=== PATIENT | male | born 1955 | race Caucasian/White ===

== ENCOUNTER → 2025-07-12 08:36 | Outpatient (REF) | payer MEDICARE, OTHER, SELFPAY ==
[2025-07-12 09:31] LABS: Hematocrit 46.1 % (39.0-52.0); Hemoglobin 15.5 g/dL (13.0-18.0); Mean Corp Hgb Conc. 33.6 g/dL (33.0-37.0); Mean Corpuscular Volume 89.5 fL (80.0-94.0); Nucleated Red Blood Cells % 0 % (-); Platelet Count 208 10^3/uL (130-400); Red Cell Dist. Width 13.2 % (11.5-14.5)
[2025-07-12 09:39] LABS: INR 1.13; PT 14.3 Sec (11.4-14.6)
[2025-07-12 09:44] LABS: ALT (SGPT) 25 U/L (0-50); AST (SGOT) 28 U/L (17-59); Albumin 4.7 g/dl (3.5-5.0); Alkaline Phosphatase 67 U/L (38-126); Blood Urea Nitrogen 26 mg/dl (9-20); Calcium 9.5 mg/dl (8.4-10.2); Carbon Dioxide 27 mmol/L (22-30); Chloride 106 mmol/L (98-107); Glucose 91 mg/dl (70-99); Magnesium 2.3 mg/dl (1.6-2.3); Potassium 4.9 mmol/L (3.5-5.1); Sodium 139 mmol/L (135-145); Total Protein 7.7 g/dl (6.3-8.2); eGFR > 60.00
== END ==
LOC: SDSPAT 08:36
PROVIDERS: ATTENDING PHYSICIAN Internal Medicine Cardiovascular Disease; FAMILY PHYSICIAN Student in an Organized Health Care Education/Training Program
DX: I48.0 Paroxysmal atrial fibrillation (principal)
CPT/HCPCS: 36415; 75572; 80053; 83735; 85025; 85610; 86850; 86900; 86901; 93005; Q9967

== ENCOUNTER 2025-07-23 07:30 | Day surgery (SDC) | payer MEDICARE, OTHER, SELFPAY ==
[2025-07-12 09:07] VITALS: BMI 26.8
--- NOTE | 2025-07-12 09:19 | HPS.HSE ---
Family Physician
-
Family Physician: NO INTERVIEW UNKNOWN
Chief Complaint
-
Paroxysmal atrial fibrillation.
History of Present Illness
The patient is a 69 year old male presenting today for paroxysmal atrial fibrillation. The patient was initially diagnosed with atrial fibrillation in December 2024. He reports palpitations, generalized fatigue, and exertional intolerance
secondary to this diagnosis. He notes that the frequency and duration of his symptoms have worsened since April. He is currently rate controlled without the use of pharmacological therapy. He does report compliance with Eliquis for oral
anticoagulation due to a [id number] of 1. Given his significant symptoms, he is interested in pursuing pulmonary vein isolation for more definitive arrhythmia management. He denies any complaints today such as chest pain, shortness of breath,
nausea, vomiting, diarrhea, lightheadedness, cough, sore throat, or fever.
Medical History
Past Medical History
Past Medical History: Reports Other
Additional Past Medical History:
1. Paroxysmal atrial fibrillation, oral anticoagulation with Eliquis.
2. White coat hypertension.
3. Dyslipidemia.
4. Right bundle branch block.
5. Mild mitral regurgitation.
6. Colon polyps.
7. Recurrent melanoma, status post excision.
8. Remote history of tobacco abuse.
Past Surgical History: Reports Other
Additional Past Surgical History:
1. Right hammertoe correction.
2. Left elbow fracture repair.
3. Tonsillectomy.
4. Mozelle teeth extraction.
5. Colonoscopy x3.
Social History
Tobacco: Former Smoker (He is a former less than 1 pack per day cigarette smoker who quit tobacco altogether 10+ years ago. )
Alcohol: None
Personal:
Living: Other (He lives with his spouse in a 2 story home. )
Family History
Family History: Other (He reports that his brother has a history of atrial fibrillation. )
Allergies / Home Medications
Allergy/Medication List:
Home medications:
1. Eliquis 5 mg p.o. twice a day.
2. Co Q10 200 mg p.o. daily.
3. Rosuvastatin 10 mg p.o. daily.
Allergies: No known allergies.
Review of Systems
-
A 12 point ROS was completed and negative except as noted: Yes
Physical Exam
Vital Signs
Blood pressure 157/88. Heart rate 59. Respirations 18. Pulse ox 99% on room air.
Height 5 feet, 10 inches. Weight 84.8 kg. BMI 26.8.
Physical Exam
General: Well Developed, Well Nourished and No Apparent Distress
HEENT: NormoCephalic, Moist mucous membranes, Atraumatic and PERRLA
Respiratory: Clear
Cardiac: Bradycardia
GI: Soft, Non Tender and Non Distended
Musculoskeletal: No Edema and Normal Gait & Station
Skin: Warm and Dry
Neuro: AO x 3 and Nonfocal/grossly intact
Laboratory Results
-
DIAGNOSTIC STUDIES as of 07/12/2025: White blood cell count 6.2. Hemoglobin 15.5. Platelet count 208,000. PT 14.3. INR 1.13. Sodium 139. Potassium 4.9. BUN 26. Creatinine 1.0. Glucose 91. Calcium 9.5. Magnesium 2.3. AST 28. ALT 25. Albumin 4.7. Type
and screen A negative.
EKG 07/12/2025: Sinus bradycardia. Right bundle branch block.
Chest CT 07/12/2025: Short segment common vestibule for the left superior and inferior pulmonary veins, fairly commonly seen and considered normal variant. No evidence for left atrial thrombus.
Echocardiogram 03/29/2025: Ejection fraction is 60%. Mild mitral regurgitation. Trace tricuspid regurgitation. Estimated PASP is 15-20 mmHg.
Nuclear stress test 02/26/2025: Low likelihood of significant coronary ischemia.
Impression/Plan
-
IMPRESSION/PLAN:
1. Paroxysmal atrial fibrillation: The patient is in need of pulmonary vein isolation with Dr. Hussain Vergara on 07/23/2025. The benefits and risks of the procedure have been explained to the patient. The patient understands these risks and
wishes to proceed. He will not be required to undergo a pre-procedural transesophageal echocardiogram as he has been compliant with his home oral anticoagulation. He is aware to continue his Eliquis uninterrupted prior to his procedure. He will take
no medications the morning of his ablation.
[2025-07-23] VITALS (13 sets, daily range): BP systolic 106–144; BP diastolic 61–82; BMI 26.6
--- NOTE | 2025-07-23 10:54 | ITS.CL.ABL ---
Network Support Administrator - Ablation
Ablation
Procedure Report:
ELECTROPHYSIOLOGIC STUDY AND POSSIBLE ABLATION
DATE: July 23, 2025
Primary Care Provider: Dr Bharat Hoff
INDICATION:
Symptomatic Atrial Fibrillation.
Paroxysmal
HAS-BLED: 1
Age
CHADSVASc: 1
Age
PRESENTING RHYTHM: SR
HISTORY: See H and P.
Symptomatic AF, poorly controlled with attempted medical therapy.
Symptoms in atrial fibrillation have included generalized fatigue which resolves quickly with rastafarian of sinus rhythm.
CHADSVASc = 1
Medical history also includes dyslipidemia and right bundle branch block
� - Report of echocardiogram dated 03/29/2025 from [facility] reports normal left ventricular size and function with ejection fraction of 65% and no segmental wall motion abnormalities.� Global longitudinal strain is normal at -19.7%.� There is
mild mitral regurgitation.
� - There is a PET/CT myocardial perfusion imaging report dated February 26, 2025 which concludes there is a low likelihood of significant coronary ischemia.
Blood work from 02/01/2025 finds hemoglobin hematocrit of 14.8 and 45, total cholesterol 142, triglycerides 67, HDL 58, LDL 70, BUN and creatinine 23 and 1, potassium 4.6, AST 22 and ALT 19
'TIME-OUT': called and confirmed.
SEDATION/ANESTHESIA: provided via the anesthesia department using general anesthesia.
PROCEDURE:
Ultrasound Guidance with real-time visualization of needle insertion and vessel patency performed by co for femoral venous Vascular Access.
Under real-time US guidance, the needle was advanced with negative pressure into the vein. The needle was seen entering the vessel lumen with a good return of dark red flow, the syringe was removed, non-pulsatile, dark red blood low was noted and
the wire was passed without difficulty, then the needle was removed. US confirmed the wire was in the vein, not going into an artery,
Images were taken and saved for the patient's permanent record. Imaging findings typical femoral venous anatomy. Direct visualization of needle puncture into the femoral vein was observed and recorded.
3 sheaths were inserted into the right femoral vein.
A decapolar CS catheter was positioned within the CS for mapping and pacing.
The intracardiac ultrasound catheter was positioned in the RA for continuous intracardiac ultrasound imaging.
Heparin bolus and infusion to target ACT at 300 -350 seconds was administered. Transseptal puncture was performed. This entailed advancing a sheath with dilator into the superior vena cava and withdrawing both (monitoring intracardiac ultrasound,
fluoroscopy and tip pressure) with the tip oriented toward the atrial septum. The fossa ovalis was engaged (indicated by sudden displacement of the sheath tip as well as tenting of the fossa seen on intracardiac ultrasound).
The [employer] transseptal system utilizing [employer] RF was used. Left atrial catheter position was confirmed by echocardiographic imaging and fluoroscopy followed by RF delivery using the [employer] system resulting in successful LA access with
pressure monitoring demonstrating LA pressure waveforms (LA mean pressure 16 mm Hg). The [employer] sheath was advanced over the dilator and positioned in the left atrium.
Geometry and voltage mapping was performed using Martin for three-dimensional electroanatomical mapping.
A 3-D map was created using Martin. A 3-D reconstructed CT image was compared to the 3-D Martin map to assist in anatomic evaluation, mapping and ablation.
The [employer] PFA catheter and system was used for cardiac ablation. Catheter positioning was guided and confirmed using both I.C.E. and fluoroscopy.
Ablation strategy included PVI as well as mapping for extra PV contributors to atrial fibrillation which would also be targeted if present.
High density electroanatomical three-dimensional mapping demonstrated four PVs: LSPV, LIPV, RSPV, RIPV.
After accomplishing pulmonary venous isolation, mapping identified additional areas likely to be extra PV contributors to atrial fibrillation. These areas demonstrated patchy low voltage as well as complex fractionated electrograms. These areas can
be sites for the formation of rotors which can drive and maintain atrial fibrillation. These areas are known to be significant contributors to initiation and perpetuation of atrial fibrillation.
Additional energy applications/additional ablation sets targeted extra PV contributors to atrial fibrillation.
Targets for additional PFA ablation included:
LA posterior wall targeted with pulsed electric field energy isolating the posterior wall of the left atrium
These areas were ablated using pulsed electric field energy eliminating the extra PV contributors to atrial fibrillation.
Post ablation mapping finds entrance and exit block at each of the pulmonary veins as well as the LA posterior wall rendering the sites no longer able to contribute to atrial fibrillation.
Programmed electrostimulation including burst atrial pacing as well the delivery of decremental extrastimuli down to atrial effective refractory period and no sustained arrhythmias could be induced.
I.C.E. :
Pre-Ablation Post-Ablation
LVEF: 55% 55%
WMA: None none
Pericardial effusion: None none
LA Pressure (mmHg) 16
COMPLICATIONS:
None
SUMMARY:
- Mapping and ablation to isolate the PVs resulting in electrical isolation of the pulmonary veins
- Additional AF ablation sets X 1 after PVI (LA posterior wall) resulting in elimination of the targeted extra PV contributors to atrial fibrillation.
- 3-D Electroanatomical Mapping
- Intracardiac Ultrasound
- Ultrasound guidance for vascular access
Post ablation, I discussed today's findings and results with the patient's , Fara.
RECOMMENDATIONS:
- Observe in monitored bed.
- Maintain oral anticoagulation, Eliquis 5 mg twice daily.
- Office visit with JAMES Winchester on November 01, 2025
Copy to:
Primary Care Provider: Dr Bharat Hoff
[2025-07-23 11:56] LABS: ACT-LR - POC 350 Seconds (116-155)
[2025-07-23 12:15] LABS: ACT-LR - POC 332 Seconds (116-155)
[2025-07-23] MEDS: ANESTHETIC LOZENGE 1 LOZENGE PO (13:46)
--- NOTE | 2025-07-23 16:15 | W.PN.UPDATE ---
Update Note
Progress Note Update
Pt seen post PFA. Right groin site without ht/bleeding, non tender. Post EKG NSR w/RBBB as before, no acute changes. Resume eliquis tonight. Followup at [facility] as scheduled and with Dr. Barber thereafter. Home today if groin site/tele remain stable.
== END 2025-07-23 17:30 | disposition home or self-care (01) ==
LOC: CATH 07:30
PROVIDERS: ATTENDING PHYSICIAN Internal Medicine Cardiovascular Disease; FAMILY PHYSICIAN Student in an Organized Health Care Education/Training Program
DX: I48.0 Paroxysmal atrial fibrillation (principal); E78.5 Hyperlipidemia, unspecified; I34.0 Nonrheumatic mitral (valve) insufficiency; I10 Essential (primary) hypertension; Z86.0100 Personal history of colon polyps, unspecified; Z85.820 Personal history of malignant melanoma of skin; Z87.891 Personal history of nicotine dependence; Z90.89 Acquired absence of other organs; I45.10 Unspecified right bundle-branch block; Z79.01 Long term (current) use of anticoagulants; Z79.899 Other long term (current) drug therapy
CPT/HCPCS: C1894; C1769; C1730; C1892; C1759; 85347; 86900; 86901; 93005; 93656; 93657; C1766